=== PATIENT | female | born 1985 | race African-American/Black ===

== ENCOUNTER 2019-05-21 15:12 | Inpatient (IN) | payer BC, OTHER | END 2019-05-22 18:15 | disposition home or self-care (01) | LOC: EDH 15:12 → WSH 05-22 00:25 → LDH 15:13 ==

== ENCOUNTER → 2025-01-26 | Outpatient (CLI) | payer BC ==
[~2025-01-26] MED LIST: ESCI20TA38 PO; FERR-82 PO; LATA7.5D OP; PREN-66 PO
--- NOTE | 2025-01-27 10:31 | HMCIMG ---
MAMMO SCREENING BILATERAL HISTORY: Screening mammogram. COMPARISON: None TECHNIQUE: Bilateral screening mammogram with CAD was performed with craniocaudal and mediolateral oblique projections. FINDINGS: There are scattered areas of fibroglandular density. There is no evidence of a dominant mass, or suspicious microcalcification. There is no evidence of nipple retraction or skin thickening. IMPRESSION: 1. No dominant mass is seen to suggest a malignant process. Patient was entered into a reminder system with a target due date for their next mammogram. BI-RADS: CATEGORY 2: BENIGN FINDINGS Recommend monthly self breast exam as well as annual clinical examination. A negative x-ray should not delay biopsy if a dominant or clinically suspicious mass is present, since 8-10% of cancers are not identified by mammography. Dense breasts particularly, may obscure an underlying neoplasm. Some of these may be detected clinically and therefore, clinical examination is an essential part of breast evaluation.
== END | disposition home or self-care (01) ==
LOC: RAH 14:59
PROVIDERS: ATTEND Obstetrics & Gynecology
DX: Z12.31 Encounter for screening mammogram for malignant neoplasm of breast (principal); R92.323 Mammographic fibroglandular density, bilateral breasts
CPT/HCPCS: 77067